=== PATIENT | female | born 1965 | race Caucasian/White ===

== ENCOUNTER 2016-10-06 00:22 | Emergency (ER) | payer SELFPAY ==
[2016-10-06 00:30] VITALS: BP 189/103
--- NOTE | 2016-10-06 00:53 | ER Document Report ---
ED General - General Chief Complaint: S/S of Possible Stroke Stated Complaint: STROKE LIKE SYMPTOMS Time Seen by Provider: 10/06/16 00:42 Notes: 51-year-old female presents with left-sided ear and neck pain for 3 days constant nonradiating worsening not accompanied by hearing difficulties, but accompanied by feeling like her "tongue is coated." Then today she noticed left facial droop. No symptoms in the extremities no numbness or tingling. Untreated hypertension. TRAVEL OUTSIDE OF THE [place] IN LAST 30 DAYS: No - Related Data Allergies/Adverse Reactions: No Known Allergies Allergy (Unverified 10/06/16 00:30) Past Medical History - General Information source: Patient - Social History Smoking Status: Never Smoker Family History: Reviewed & Not Pertinent Patient has suicidal ideation: No Patient has homicidal ideation: No - Past Medical History Cardiac Medical History: Reports: Hx Hypercholesterolemia, Hx Hypertension Endocrine Medical History: Reports: Hx Diabetes Mellitus Type 2 Renal/ Medical History: Denies: Hx Peritoneal Dialysis Past Surgical History: Reports: Hx Section - x1 - Immunizations Hx Diphtheria, Pertussis, Tetanus Vaccination: Yes - 2010 Review of Systems - Review of Systems Notes: REVIEW OF SYSTEMS GEN: Denies fever, chills, weight loss ENT: Denies sore throat, nasal discharge, left ear pain EYES: Denies blurry vision, eye pain, discharge CV: Denies chest pain, palpitations, edema RESP: Denies cough, shortness of breath, wheezing GI: Denies abdominal pain, nausea, vomiting, diarrhea MSK: Denies joint pain/swelling, edema, SKIN: Denies rash, skin lesions LYMPH: Denies swollen glands/lymph nodes NEURO: Denies headache, f left facial numbness PSYCH: Denies depression, suicidal or homicidal ideation PHYSICAL EXAMINATION General: No acute distress, well-nourished Head: Atraumatic, normocephalic ENT: Mouth normal, oropharynx moist, no exudates or tonsillar enlargement. Normal left external canal and tympanic membrane. Eyes: Conjunctiva normal, pupils equal, lids normal. Neck: No JVD, supple, no guarding CVS: Normal rate, regular rhythm, no murmurs Resp: No resp distress, equal and normal breath sounds bilaterally GI: Nondistended, soft, no tenderness to palpation, no rebound or guarding Ext: No deformities, no edema, normal range of motion in upper and lower ext Back: No CVA or midline TTP Skin: No rash, warm Lymphatic: No lymphadeopathy noted Neuro: Awake, alert. Face asymmetric: Left facial weakness involving the forehead cheek and lower face. Incomplete left eye closing. No pronator drift.. GCS 15. Physical Exam - Vital signs Vitals: Temp Pulse Resp BP Pulse Ox 97.6 F 98 18 189/103 H 95 10/06/16 00:10/06/16 00:10/06/16 00:10/06/16 00:10/06/16 00:27 Course - Re-evaluation Re-evalutation: 10/06/16 00:53 Acute Shell's palsy idiopathic. Mild to moderate severity. No indication of stroke. Steroids, erythromycin and eye taping, refer to neurology. I have discussed with the patient there likely diagnosis, aftercare plan, follow-up plans and my usual and customary return precautions. They verbalized understanding of this. - Vital Signs Vital signs: Temp Pulse Resp BP Pulse Ox 97.6 F 98 18 189/103 H 95 10/06/16 00:27 10/06/16 00:10/06/16 00:10/06/16 00:27 10/06/16 00:27 Discharge - Discharge Clinical Impression: Left-sided Shell's palsy Condition: Good Disposition: HOME, SELF-CARE Instructions: Shell's Palsy ([facility]), Steroid Medication Additional Instructions: Please use paper tape to tape your eye lid shots at night. Please use the antibiotic ointment to maintain good moisture in the eye, and by some overthecounter artificial tears for daytime. Prescriptions: Erythromycin Base [Erythromycin] 1 gm OP QHS #1 oint...g. Prednisone [Deltasone 20 mg Tablet] 2 tab PO DAILY 7 Days Referrals: NEUROLOGY [Provider Group] - Follow up as needed
== END 2016-10-06 01:12 | disposition home or self-care (01) ==
LOC: ER 00:22
DX: G51.0 Bell's palsy (principal); H92.02 Otalgia, left ear; M54.2 Cervicalgia; I10 Essential (primary) hypertension; E11.9 Type 2 diabetes mellitus without complications
CPT/HCPCS: 99283

== ENCOUNTER 2019-05-10 14:42 | Emergency (ER) | payer SELFPAY ==
[2019-05-10] MEDS ORDERED: ALBUTEROL SULFATE HFA (90 MCG/PUFF) 8 GM MDI IH ONE (15:48)
--- NOTE | 2019-05-10 15:53 | ER Document Report ---
HPI - HPI Time Seen by Provider: 05/10/19 15:40 Pain Level: Denies Context: Patient is a 53-year-old female who presents the emergency department with a chief complaint of a cough, sinus congestion, and shortness of breath. Patient states that she has had her symptoms for the past 3 weeks and her symptoms have gotten progressively worse over the past 3 days. Patient admits to coughing up mucus. Patient denies any fever. Patient has history of diabetes and hyper tension. She is supposed to be on metformin and lisinopril, but is not taking those medications because she does not have insurance. - CONSTITUTIONAL Constitutional: DENIES: Fever, Chills - EENT EENT: REPORTS: Nasal Drainage-Purulent, Congestion. DENIES: Eye problems - NEURO Neurology: DENIES: Headache, Weakness, Vision blurred - RESPIRATORY Respiratory: REPORTS: Coughing - GASTROINTESTINAL Gastrointestinal: DENIES: Abdominal Pain, Nausea, Patient vomiting - REPRODUCTIVE Reproductive: DENIES: : - MUSCULOSKELETAL Musculoskeletal: DENIES: Extremity pain - DERM Skin Color: Normal Skin Problems: None Past Medical History - Social History Smoking Status: Former Smoker Frequency of alcohol use: None Drug Abuse: None Family History: Reviewed & Not Pertinent Patient has suicidal ideation: No Patient has homicidal ideation: No - Past Medical History Cardiac Medical History: Reports: Hx Hypercholesterolemia, Hx Hypertension Endocrine Medical History: Reports: Hx Diabetes Mellitus Type 2 Renal/ Medical History: Denies: Hx Peritoneal Dialysis Past Surgical History: Reports: Hx Section - x1 - Immunizations Hx Diphtheria, Pertussis, Tetanus Vaccination: Yes - 2010 [facility] Provider Document - CONSTITUTIONAL Agree With Documented VS: Yes Exam Limitations: No Limitations General Appearance: No Apparent Distress - INFECTION CONTROL TRAVEL OUTSIDE OF THE [place] IN LAST 30 DAYS: No - HEENT HEENT: Atraumatic, Normocephalic, PERRLA Notes: Maxillary sinus pain - NECK Neck: Normal Inspection. negative: Lymphadenopathy-Left, Lymphadenopathy-Right - RESPIRATORY Respiratory: Breath Sounds Normal, No Respiratory Distress - CARDIOVASCULAR Cardiovascular: Regular Rate, Regular Rhythm Pulses: Normal: Radial - MUSCULOSKELETAL/EXTREMETIES Musculoskeletal/Extremeties: FROM - NEURO Level of Consciousness: Awake, Alert, Appropriate Motor/Sensory: No Motor Deficit, No Sensory Deficit - DERM Integumentary: Warm, Dry, No Rash Course - Re-evaluation Re-evalutation: 03/02/20 15:49 Patient's physical exam is consistent with acute sinusitis and bronchitis. Patient will be treated with Augmentin and prednisone. I have very low calvillo spicion for pneumonia, sepsis, or any life-threatening etiology at this time. Patient will be restarted on her metformin and lisinopril. Will refer her to [facility] and [facility]. She is in agreement with this plan. Follow-up precautions were given. Verbal discharge instructions were given to the patient. They verbalized understanding. They are stable for discharge. - Vital Signs Vital signs: Temp Pulse Resp BP Pulse Ox 98.2 F 99 20 186/97 H 95 05/10/19 14:49 05/10/19 14:49 05/10/19 14:49 05/10/19 14:49 05/10/19 14:49 Discharge - Discharge Clinical Impression: Cough, Bronchitis, Essential hypertension, History of diabetes mellitus Condition: Stable Disposition: HOME, SELF-CARE Additional Instructions: You were seen today in the emergency department for sinus congestion and a cough. You are being placed on Augmentin, an antibiotic to help with your symptoms. Please also take the steroids. You are being sent home with an inhaler. You can take 1 puff every 4-6 hours as needed for shortness of breath. You are also being started on your metformin and lisinopril. Please follow-up with 1 of the clinics below in regards to this visit. Prescriptions: Benzonatate [Tessalon Perles 100 mg Capsule] 100 mg PO Q8HP PRN #40 capsule PRN Reason: Amoxicillin/Potassium Clav [Augmentin 875-125 Tablet] 1 tab PO BID #20 tab Prednisone [Deltasone 20 mg Tablet] 3 tab PO DAILY 5 Days tablet Metformin HCl [Glucophage 500 mg Tablet] 500 mg PO BID #60 tablet Lisinopril [Prinivil 10 mg Tablet] 10 mg PO DAILY #30 tablet Forms: Return to Work Referrals: SCOTTY CARMONA FNP-C [Primary Care Provider] - Follow up in 3-5 days [facility] [Provider Group] - Follow up in 3-[address] [facility] [Provider Group] - Follow up in 3-5 days
[2019-05-10 16:00] VITALS: BP 189/90
== END 2019-05-10 16:01 | disposition home or self-care (01) ==
LOC: ER 14:42
DX: J40 Bronchitis, not specified as acute or chronic (principal); R06.02 Shortness of breath; I10 Essential (primary) hypertension; E78.00 Pure hypercholesterolemia, unspecified; E11.9 Type 2 diabetes mellitus without complications
CPT/HCPCS: 99283; J3490